=== PATIENT | male | born 1940 | race Caucasian/White ===

== ENCOUNTER 2022-11-19 11:21 | Outpatient (CLI) | payer MEDICARE, SELFPAY ==
--- NOTE | ~2022-11-19 | PE_ITS ---
EXAMINATION: PET_PETPSMAST_PT DATE: 11/19/2022 15:39 INDICATION: Prostate cancer TECHNIQUE: 10.523 mCi of pipflufolastat F-18 (18-F-DCFPyL) was administered i.v. Low dose computed t omography (CT) images were acquired from the base of the brain to the base of the brain to the proxim al thighs for attenuation correction and anatomic localization. Positron emission tomography (PET) im ages were acquired in the same distribution beginning 104 minutes after injection. Images including f used PET/CT images were reconstructed in axial, coronal, and sagittal planes. Automated exposure cont rol technique was employed. The dose-length product was 811.37mGy-cm. COMPARISON: CT lumbar spine dated 10/20/2019 FINDINGS: Head/neck: Typical pattern of symmetric physiologic increased activity in the lacrimal, parotid and submandibula r glands as well as along the mucosa of the oropharynx and nasopharynx and at the vocal cords. No pat hologically enlarged cervical lymphadenopathy or suspicious foci of increased uptake in the visualize d head or neck. Chest: Small focus of increased uptake at the T4 vertebral body with maximal SUV of 42 without discernible c orrelate on the CT images. Additional small focus of increased uptake with maximal severe 4.1 without definitive radiologic correlate at the right posterior aspect of the T9 vertebral body. Mild emphyse ma. Elevation the right hemidiaphragm with mild atelectasis at the right lung base. No suspicious pul monary nodules, pleural effusion, pathologically enlarged thoracic lymphadenopathy or other suspiciou s foci of abnormal PSMA neck activity. Heart size is normal. No pericardial effusion. Abdomen/pelvis/proximal thighs: Physiologic renal accumulation and excretion of activity in the kidneys, bladder and along portions o f ureters. There is increased uptake in the region of the prostate which appears small suggesting thi s is primarily if not exclusively due to urine activity at the site of a prior prostatectomy. No inte rval change in a 2 cm exophytic cyst at the posterior right kidney. Cholecystectomy clips the gallbla dder fossa. Normal degree and slightly heterogenous pattern of increased uptake throughout the liver and spleen without radiologic correlate or dominant PSMA avid lesion. Moderate fatty atrophy of the p ancreas. The bilateral adrenal glands are normal. Moderate uptake scattered throughout the bowels wit h typical duodenal predominance and without radiologic correlate, also likely physiologic. There are numerous prominently PSMA avid but still relatively small retroperitoneal lymph nodes beginning infer iorly in the left obturator region extending cephalad along the left iliac chain node surrounding the infrarenal aorta and inferior vena cava. None of the lymph nodes appear to measure greater than 6-8 mm in maximal short axis diameters however the maximum SUVs ranging from the 20s to 40s. There are al so a couple very small FDG avid bone lesions in the pelvis, one at the right side of S2 with maximal SUV of 14 and one at the left iliac crest with maximal SUV of 8.2 x 3 subtle associated sclerosis. IMPRESSION: 1. Numerous markedly PSMA avid normal-sized likely metastatic retroperitoneal lymph nodes beginning c audally at the left obturator region and extending the cephalad up the left iliac chain to the infrar enal periaortic and pericaval regions. 2. A few scattered very small PSMA avid bone lesions in the spine and pelvis also consistent with met astatic disease. Reviewed, dictated and finalized at location A. ATOR IMPRESSION: 1. Numerous markedly PSMA avid normal-sized likely metastatic retroperitoneal l ymph nodes beginning caudally at the left obturator region and extending the ce phalad up the left iliac chain to the infrarenal
== END 2022-11-19 11:22 | disposition home or self-care (01) ==
PROVIDERS: PCP Family Medicine; Visit Provider Urology
DX: C61 Malignant neoplasm of prostate (principal); M89.9 Disorder of bone, unspecified; R94.8 Abnormal results of function studies of other organs and systems
CPT/HCPCS: 78815; A9595

== ENCOUNTER 2024-07-26 10:26 | Outpatient (CLI) | payer MEDICARE, SELFPAY ==
--- NOTE | ~2024-07-26 | US_ITS ---
EXAMINATION: US arterial ankle brachial ind DATE: 07/26/2024 11:21 INDICATION: Peripheral vascular disease with claudication TECHNIQUE: Segmental pressures and plethysmographic and Doppler waveforms of the brachial and lower e xtremity arteries were obtained. COMPARISON: None. FINDINGS: Right and left brachial artery pressures of 134 mm Hg and 138 mm Hg, respectively, are concordant (no rmal difference <= 30 mmHg). The right ankle-brachial index (JOSE) is 1.07 (normal >= 0.9-1.0). The right great toe-brachial index (TBI) is 0.49 (normal >= 0.65). Arterial Doppler waveforms are biphasic with brisk systolic upstrokes at both right posterior tibial and dorsalis pedis arteries. The left JOSE is 1.12. The left TBI is 0.51. Arterial Doppler waveforms are biphasic with brisk systol ic upstrokes at both left posterior tibial and dorsalis pedis arteries. IMPRESSION: 1. Mild arterial occlusive disease to bilateral lower limbs with normal bilateral ABIs but mildly dec reased bilateral TBIs. Reviewed, dictated and finalized at location A. IMPRESSION: 1. Mild arterial occlusive disease to bilateral lower limbs with normal bilater al ABIs but mildly decreased bilateral TBIs.
== END 2024-07-26 10:27 | disposition home or self-care (01) ==
PROVIDERS: PCP Family Medicine; Visit Provider Physician Assistant Medical
DX: I77.1 Stricture of artery (principal); E11.9 Type 2 diabetes mellitus without complications; Z79.4 Long term (current) use of insulin
CPT/HCPCS: 93922

== ENCOUNTER 2025-01-15 11:28 | Emergency (ER) | payer MEDICARE, SELFPAY ==
--- NOTE | ~2025-01-15 | XR_ITS ---
EXAMINATION: XR chest 2V Exam Date/Time: 01/15/2025 14:20 CDT HISTORY: weakness Comparison: 02/28/2012. RESULT: Lines, tubes, and devices: Cholecystectomy clips. Lungs and pleura: Persistent right hemidiaphragm elevation, low lung volumes with crowding, particul marcella in the lateral view, lungs otherwise clear. Cardiomediastinal silhouette: Stable. Other: No acute osseous or upper abdominal finding. IMPRESSION: No acute cardiopulmonary process. Chronic right hemidiaphragm elevation, consider outpatient fluorosc opic sniff test. Reviewed, dictated and finalized at location K. IMPRESSION: No acute cardiopulmonary process. Chronic right hemidiaphragm elevation, consid er outpatient fluoroscopic sniff test.
--- NOTE | ~2025-01-15 | CT_ITS ---
EXAMINATION: CT brain wo con DATE: 01/15/2025 14:24 INDICATION: weakness . TECHNIQUE: Computed tomography (CT) of the head was performed without intravenous contrast. The mA wa s adjusted according to patient size. Iterative reconstruction technique was employed. The dose-lengt h product was 605.33 mGy-cm. COMPARISON: None. FINDINGS: No acute intracranial hemorrhage or extra-axial fluid collection. No hydrocephalus, mass, or herniation. No acute ischemic infarct. Unremarkable dural venous sinus attenuation. No acute osseous abnormality. The aerated spaces are clear. Mild atrophy and chronic white matter change. Atherosclerotic intracranial calcifications. IMPRESSION: No acute intracranial process. Reviewed, dictated and finalized at location K.
--- OUTSIDE RECORDS SUMMARY | 2025-01-15 11:33 | XMS_ITS | Patient Health Summary ---
Author Organization [facility] Address [address] [place] [address] Care Team Providers Care Settlement Processor Name Role Phone Unavailable Primary Care Provider Unavailabl e Note from [facility],non-owned Affiliates and Associated Physician Practices is amultiple site organization consisting of ambulatory clinics and hospital sitesin [place], [place], [place] and [place]. This disclosure is being madepursuant to the Care Everywhere program and may not contain all information available regarding this patient. Last updated 18.[facility] Allergies No known active allergies Medications * Be aware that medications may not be up to date on this document. Alwaysverify current medications with the patient. * amitriptyline (ELAVIL) 25 MG tablet(Started 11/09/2015) TAKE 3 TABLETS BY MOUTH EVERY NIGHT AT BEDTIME 4 refills left Social History Tobacco Use Types Packs/Day Years Used Date Smoking Tobacco: Never Assessed Sex and Gender Information Value Date Recorded Sex Assigned at Not on file Gender Identity Not on file Sexual Orientation Not on file
--- OUTSIDE RECORDS SUMMARY | 2025-01-15 11:33 | XMS_ITS | Clinical Summary ---
Author Organization [facility] Address [address] [place] [id number] Care Team Providers Care Buffing Turner And Counter Name Role Phone Unavailable Primary Care Provider Unavailabl e Social History Tobacco Use Types Packs/Day Years Used Date Smoking Tobacco: Never Assessed Sex and Gender Information Value Date Recorded Sex Assigned at Not on file Legal Sex Male 6:36 PM CDT Gender Identity Not on file Sexual Orientation Not on file Plan of Treatment Health Maintenance Due Date Last Done Comments DTaP, Tdap and Td Vaccines ( 1 - Tdap) 1958 Zoster Vaccines (1 of 2) 1989 Pneumococcal Vaccine: 65+ Ye ars (1 of 1 - PCV) 2004 RSV Immunization or 60+ Years (1 - 1-dose 75+ series) 2014 COVID-19 Vaccine ( - 2023-2 5 season) 2024 Influenza Adult (#1) 2024 Meningococcal B Vaccine Aged Out No l onger eligible based on patient's age to complete this topic Meningococcal Vaccine Aged Out No dalton rasheeda eligible based on patient's age to complete this topic RSV Immunizations Under 20 Months Aged Out No longer eligible based on patient's age to complete this topic
--- OUTSIDE RECORDS SUMMARY | 2025-01-15 11:33 | XMS_ITS | Referral Summary ---
Author Organization [facility] Address [address] [place] [address] Care Team Providers Care Continuous Linter Drier Operator Name Role Phone Unavailable Primary Care Provider Unavailabl e Source Comments [facility] [employer],non-owned Affiliates and Associated Physician Practices is amultiple site organization consisting of ambulatory clinics and hospital sitesin [place], [place], [place] and [place]. This disclosure is being madepursuant to the Care Everywhere program and may not contain all information available regarding this patient. Last updated 18.[facility] [employer] Allergies No known active allergies Medications * Be aware that medications may not be up to date on this document. Alwaysverify current medications with the patient. Medication Sig Dispensed Refills Start Date End Date Status amitriptyline (ELAVIL) 25 MG tablet TAKE 3 TABLETS BY MOUTH EVERY NIGHT AT BEDTIME 270 Tab 4 11/09/2015 Active Social History Tobacco Use Types Packs/Day Years Used Date Smoking Tobacco: Never Assessed Sex and Gender Information Value Date Recorded Sex Assigned at Not on file Gender Identity Not on file Sexual Orientation Not on file Plan of Treatment Not on file
--- OUTSIDE RECORDS SUMMARY | 2025-01-15 11:33 | XMS_ITS | Clinical Summary ---
Author Organization [facility] [employer] Address [address] [place] [address] Care Team Providers Care Employment Agency Manager Name Role Phone Unavailable Primary Care Provider Unavailabl e Source Comments [facility] [employer],non-owned Affiliates and Associated Physician Practices is amultiple site organization consisting of ambulatory clinics and hospital sitesin [place], [place], [place] and [place]. This disclosure is being madepursuant to the Care Everywhere program and may not contain all information available regarding this patient. Last updated 18.[facility] [employer] Allergies No known active allergies Medications * [...] Health Maintenance Due Date Last Done Comments DTAP/TDAP/TD VACCINES (1 - Tdap) 1959 PNEUMOCOCCAL VACCINE 50+ (1 of 1 - PCV) 1989 ZOSTER VACCINE (1 of 2) 1989 Respiratory Syncytial Virus (RSV) Vaccine Pt: or over 60 yrs (1 - 1-dose 75+ series) 2014 COVID-19 VACCINE ( - 2023-2 5 season) 2024 INFLUENZA VACCINE (#1) 2024 DEPRESSION SCREENING 11/03/2024 HEPATITIS B VACCINE Aged Out No longe r eligible based on patient's age to complete this topic HIB VACCINE Aged Out No longer eligi ble based on patient's age to complete this topic HPV VACCINE Aged Out No longer eligi ble based on patient's age to complete this topic MENINGOCOCCAL (Group B) VACC INE SHARED DECISION-MAKING Aged Out No longer eligibl e based on patient's age to complete this topic MENINGOCOCCAL GROUPS A/C/Y/W VACCINE Aged Out No longer eligible b ased on patient's age to complete this topic
[2025-01-15 11:38] VITALS: BP 129/67; PULSE 96; RESP 16; TEMP 36.3; O2SAT 100
--- OUTSIDE RECORDS SUMMARY | 2025-01-15 13:40 | XMS_ITS | Patient Health Summary ---
Author Organization [facility] Address [address] [place] [address] Care Team Providers Care Dairy Equipment Mechanic Name Role Phone Unavailable Primary Care Provider Unavailabl e Note from [facility],non-owned Affiliates and Associated Physician Practices is amultiple site organization consisting of ambulatory clinics and hospital sitesin [place], [place], [place] and [place]. This disclosure is being madepursuant to the Care Everywhere program and may not contain all information available regarding this patient. Last updated 18.[facility] [employer] Allergies No known active allergies Medications * [...]
--- OUTSIDE RECORDS SUMMARY | 2025-01-15 13:40 | XMS_ITS | Referral Summary ---
Author Organization [facility] Address [address] [place] [address] Care Team Providers Care Table Games Dual Rate Supervisor Name Role Phone Unavailable Primary Care Provider Unavailabl e Source Comments [facility] [employer],non-owned Affiliates and Associated Physician Practices is amultiple site organization consisting of ambulatory clinics and hospital sitesin [place], [place], [place] and [place]. This disclosure is being madepursuant to the Care Everywhere program and may not contain all information available regarding this patient. Last updated 18.[facility] [employer] Allergies No known active allergies Medications * [...]
--- OUTSIDE RECORDS SUMMARY | 2025-01-15 13:40 | XMS_ITS | Clinical Summary ---
Author Organization [facility] Address [address] [place] [address] Care Team Providers Care Tankerman Name Role Phone Unavailable Primary Care Provider [...]
--- OUTSIDE RECORDS SUMMARY | 2025-01-15 13:40 | XMS_ITS | Clinical Summary ---
Author Organization [facility] Address [address] [place] [address] Care Team Providers Care Relief Pharmacist Name Role Phone Unavailable Primary Care Provider Unavailabl e Source Comments [facility] [employer],non-owned Affiliates and Associated Physician Practices is amultiple site organization consisting of ambulatory clinics and hospital sitesin [place], [place], [place] and [place]. This disclosure is being madepursuant to the Care Everywhere program and may not contain all information available regarding this patient. Last updated 18.[facility] Allergies No known active allergies Medications * [...]
--- NOTE | 2025-01-15 13:41 | ECG_ITS ---
Test Date: 2025-01-15 13:51:17 Measurements Intervals [place] Rate: 79 P: 36 AR: 127 QRS: 46 QRSD: 79 T: 47 QT: 406 QTc: 467 Interpretive Statements SINUS RHYTHM WITH SINUS ARRHYTHMIA Electronically Signed On 01-16-2025 13:58:32 CDT by Darnell Marquez D.O
--- NOTE | 2025-01-15 13:42 | ED_ITS ---
HPI - General Adult General Chief complaint: Unspecified Stated complaint: hot flushes, weakness, pt is on cancer med Time Seen by Provider: 01/15/25 13:27 History of Present Illness HPI narrative: 84-year-old male with a past medical history including prostate cancer, diabetes. He presents today with vague complaints that he states has been chronic for multiple weeks. Patient states he has been having hot and cold flashes, multiple medications have been changed by his primary doctor including Elavil and was taken off insulin and placed on oral medications for diabetes. He thinks he is having side effects from these medication changes but has not called his doctor for instructions are advised. His is present at bedside states that he is not call his doctor infused cause doctor but when he called today their office was closed and he came to the emergency department. Patient denies any chest pain, shortness a breath, nausea, vomiting, headache, vision changes, abdominal pain or back pain. He was otherwise in his normal state of health. Symptoms going on for several months according to the patient. Related Data Home Medications ?Medication ?Instructions ?Recorded ?Confirmed ?Last Taken ?Type enzalutamide 80 mg tablet (Xtandi) 160 mg PO DAILY 08/23/24 12/09/24 Unknown History vibegron 75 mg tablet (Gemtesa) 75 mg PO DAILY 08/23/24 12/09/24 Unknown History trospium 60 mg capsule,extended 60 mg PO QAM 12/09/24 12/09/24 Unknown History release 24 hr Allergies Allergy/AdvReac Type Severity Reaction Status Date / Time metoclopramide Allergy Severe Unknown Verified 01/15/25 13:49 Review of Systems 2 Review of Systems: As reviewed above in HPI [facility] Past Medical History Medical History (Updated 01/15/25 @ 19:02 by Julio Glover MD) Diabetic neuropathy Dermagraphy Diabetes mellitus Prostate cancer Surgical History Surgical History H/O prostatectomy 2010 or 2011 History of cholecystectomy History of surgical removal of meniscus of knee Family History Family History Father Diabetes mellitus Social History Social History Smoking packs per day: 1.5 Smoking cigarettes per day: 30.0 Years smoked: 30 Smoking pack-years: 45.00 Smoking status: Former smoker Tobacco type: cigarettes Second hand tobacco smoke exposure: No Smoking end date: 11/03/70 Alcohol intake: never Substance use: never Substance use type: does not use Lack of Transportation: No Lack of Food: Sometimes True Current Housing: I Have Housing Concerned About Future Housing: No Difficulty Paying Gas/Electric Bills: Decline to Answer Difficulty Paying for Meds: Decline to Answer Currently Unemployed: Decline to Answer Education: Decline to Answer Difficulty w/ Childcare or Family Care: No Living arrangements: with family Occupation/Education: retired Gender identity (if verbalized by the patient): Male Sexual Orientation (if Verbalized by the Patient): Straight or Heterosexual Spiritual care concerns: No Agree to blood products: Yes Exam 2 Narrative: GENERAL: [Well-appearing, well-nourished, and in no acute distress.] HEAD: [Normocephalic, atraumatic.] EYES: [PERRLA and EOMI.] ENT: Nares clear, no rhinorrhea or epistaxis. Mucous membranes moist. NECK: Supple. CHEST: [Clear to auscultation. No respiratory distress.] HEART: [Regular rate and rhythm]. No murmur heard. [Normal peripheral pulses.] ABDOMEN: [Soft, nondistended], [nontender], [No rigidity or guarding] EXTREMITIES: Normal range of motion. [No edema.] SKIN: Warm, dry, no rash. NEURO: [No focal deficits]. Alert and oriented [x3.] PSYCH: [Normal mood and affect.] Course Vital Signs Vital signs: Vital Signs Temperature 36.3 C L 01/15/25 11:38 Pulse Rate 96 01/15/25 11:38 Respiratory Rate 16 01/15/25 11:38 Blood Pressure 129/67 01/15/25 11:38 Pulse Oximetry 100 01/15/25 11:38 Oxygen Delivery Room Air 01/15/25 11:38 Temperature 36.3 C L 01/15/25 11:38 Pulse Rate 86 01/15/25 18:50 Respiratory Rate 15 01/15/25 18:50 Blood Pressure 130/80 01/15/25 18:50 Pulse Oximetry 97 01/15/25 18:50 Oxygen Delivery Room Air 01/15/25 11:38 Medical Decision Making MDM Narrative Medical decision making narrative: 84-year-old male with history of prostate cancer, diabetes. He presents to the emergency room with multiple vague complaints including generalized weakness, hot and cold flashes. He states his symptoms are going on for several weeks to months and attributes them to medication changes including his Elavil and diabetes of drug management. He states that he has not call his doctors, certified composites technician or any of his specialist to discuss the medication changes. He did not set up with PCP appointment. His states that she was trying to get him to call his doctor but he refused. Patient self is not any acute distress, has normal vital signs without any tachycardia, fever or hypoxia. Normal blood pressure. Unremarkable clinical examination. Patient has multiple vague complaints and does not appear to be having a medical emergency but given his age and risk factors workup was ordered and screening laboratory studies CBC, CMP, EKG, chest x-ray, urinalysis and a CT of the head was ordered. Informed the patient that he has an unremarkable workup without any acute focal findings that he will have to call his primary doctor to set up a follow-up appointment to discuss his medication changes as we will not be adjusting his medications acutely. Workup shows no leukocytosis or significant anemia. Normal platelet count. Electrolytes within normal limits, normal creatinine, normal glucose, normal LFTs. Normal TSH. Urinalysis without signs of infection. Head CT without any acute intracranial findings. Chest x-ray without any acute cardiopulmonary process. Patient's workup was unremarkable he has normal reassuring vital signs and stable upon reassessment. No emergent concerns. He can be safely discharged with regular PCP follow-up for medication titration. Patient and family made aware of the plan and discharged at this time. Medical Records Medical records reviewed: Yes I reviewed the external patient's medical records. Vital Signs Vital Signs: Vital Signs Temperature 36.3 C L 01/15/25 11:38 Pulse Rate 96 01/15/25 11:38 Respiratory Rate 16 01/15/25 11:38 Blood Pressure 129/67 01/15/25 11:38 Pulse Oximetry 100 01/15/25 11:38 Oxygen Delivery Room Air 01/15/25 11:38 Temperature 36.3 C L 01/15/25 11:38 Pulse Rate 86 01/15/25 18:50 Respiratory Rate 15 01/15/25 18:50 Blood Pressure 130/80 01/15/25 18:50 Pulse Oximetry 97 01/15/25 18:50 Oxygen Delivery Room Air 01/15/25 11:38 Lab Data Lab results reviewed: Yes I reviewed the patient's lab results. 01/15/25 13:59 01/15/25 13:59 Labs: Lab Results 01/15/25 01/15/25 Range/Units 13:59 15:39 WBC 7.8 (4.5-10.0) K/mm3 RBC 4.11 L (4.6-6.20) M/mm3 Hgb 13.3 L (14.0-18.0) g/dL Hct 38.6 L (42.0-52.0) % MCV 93.9 (80-100) fl MCH 32.4 (26-34) pg MCHC 34.5 (32-36) g/dl RDW 12.6 (11.5-14.5) % Plt Count 270 (150-375) k/mm3 MPV 8.8 (7.4-10.4) fl Immature Gran % (Auto) 0.4 (0-0.5) % Neut % (Auto) 53.2 (45.5-73.1) % Lymph % (Auto) 30.7 (18.3-44.2) % [place] % (Auto) 12.3 H (2.6-8.5) % Eos % (Auto) 2.9 (0-4.4) % Baso % (Auto) 0.5 (0.2-1.2) % Lymph # (Auto) 2.40 (0.9-3.2) K/mm3 [place] # (Auto) 1.0 H (0.1-0.6) K/mm3 Eos # (Auto) 0.2 (0-0.3) K/mm3 Baso # (Auto) 0.0 (0.0-0.1) K/mm3 Abs Immat Gran (auto) 0.03 (0.00-0.031) K/mm3 Absolute Neuts (auto) 4.2 (1.3-6.7) K/mm3 Absolute Nucleated RBC 0.000 (0.0-0.012) K/mm3 Nucleated RBC % 0.0 (0.0-0.2) % Sodium 139 (137-145) mmol/L Potassium 4.1 (3.4-5.0) mmol/L Chloride 105 (98-107) mmol/L Carbon Dioxide 27 (22-30) mmol/L Anion Gap 7 (4-12) mmol/L BUN 25 H (9-20) mg/dL Creatinine 0.94 (0.7-1.3) mg/dL Estim Creat Clear Calc 52 ml/min Estimated GFR > 60 (59 - ) Glucose 152 H (65-110) mg/dL Calcium 9.2 (8.4-10.2) mg/dL Total Bilirubin 0.8 (0.2-1.3) mg/dL AST 24 (17-59) U/L ALT 17 (6-50) U/L Alkaline Phosphatase 102 (38-126) U/L Total Protein 7.0 (6.3-8.2) g/dL Albumin 3.8 (3.5-5.1) g/dL TSH (Reflex) 1.170 (0.465-4.68) uIU/mL Urine Color Yellow (Yellow) Urine Appearance Clear (Clear) Urine pH 6.5 (5.0-9.0) Ur Specific [place] 1.023 (1.001-1.035) Urine Protein Negative (Negative) mg/dL Urine Glucose (UA) Negative (Negative) mg/dL Urine Ketones Trace H (Negative) mg/dL Ur Blood (Man) Negative (Negative) Urine Nitrate Negative (Negative) Urine Bilirubin Negative (Negative) Urine Urobilinogen 0.2 (<2.0) mg/dL Leukocyte Esterase Rfl Negative (Negative) ARGELIA/UL Imaging Data Attestation: I personally reviewed and interpreted this imaging study as follows: My impression: Impressions Head CT 01/15/25 14:41 IMPRESSION: No acute intracranial process. Chest X-Ray 01/15/25 15:00 IMPRESSION: No acute cardiopulmonary process. Chronic right hemidiaphragm elevation, consider outpatient fluoroscopic sniff test. Discharge Plan Discharge Clinical Impression: Weakness Patient Disposition: Home, Self-Care Condition: Stable Instructions: Antibiotic Form, Weakness (ED) Additional Instructions: Your workup appears very unremarkable. Normal laboratory studies, no signs of infection, no urinary infection. No CT findings, normal chest x-ray. Normal vital signs. Call your regular doctor for outpatient follow-up. No urgent or emergent concerns identified today Patient Language: Citizen Of [place] Prescriptions: No Action glucagon 3 mg/actuation spray,non-aerosol 3 mg intranasal ONCE Qty: 2 4RF Rx Instructions: as a single dose; may repeat once in 15 minutes if no response glucose [Dex4 Glucose] 4 gram tablet,chewable 16 g PO Q15M PRN (Reason: hypoglycemia) Qty: 60 1RF Rx Instructions: until symptoms of low blood sugar are controlled Gemtesa 75 mg tablet 75 mg PO DAILY Xtandi 80 mg tablet 160 mg PO DAILY trospium 60 mg capsule,extended release 24hr 60 mg PO QAM Rx Instructions: must be taken on empty stomach at least 1 hour before a meal/food with water only Tradjenta 5 mg tablet 5 mg PO QAM Qty: 90 3RF (DME) lancets 30 gauge misc See Rx Instructions .ROUTE .MEDSUPPLY Qty: 450 3RF Rx Instructions: As directed - test blood sugar 5x daily (DME) OneTouch Verio test strips Strip See Rx Instructions .ROUTE .MEDSUPPLY Qty: 450 3RF Rx Instructions: As directed - test blood sugar 5x daily (DME) blood-glucose meter [OneTouch Verio Meter] Misc See Rx Instructions .Route Qty: 1 0RF Rx Instructions: As directed daily (DME) lancing device [lancing device with lancets] Misc See Rx Instructions .Route Qty: 1 10RF Rx Instructions: As directed bid amitriptyline 25 mg tablet 75 mg PO QPM Qty: 270 3RF famotidine 40 mg tablet 40 mg PO Q12H Qty: 180 3RF Follow-up/Referrals: Star Stuart MD [Primary Care Provider] - Time of Disposition: 19:02
[2025-01-15 13:49] VITALS: BP 141/78; PULSE 83; RESP 17; O2SAT 97
[2025-01-15] MEDS: LACTATED RINGERS 1,000 ML 999 ML IV CONT (13:58)
[2025-01-15 14:03] LABS: Basophils Percent Auto 0.5 % (0.2-1.2); Eosinophils Absolute Auto 0.2 K/mm3 (0-0.3); Eosinophils Percent Auto 2.9 % (0-4.4); Hematocrit 38.6 % (42.0-52.0); Hemoglobin 13.3 g/dL (14.0-18.0); Immature Granulocyte Absolute 0.03 K/mm3 (0.00-0.031); Immature Granulocyte Percent A 0.4 % (0-0.5); Lymphocytes Percent Auto 30.7 % (18.3-44.2); Mean Corpuscular HGB Conc 34.5 g/dl (32-36); Mean Corpuscular Hemoglobin 32.4 pg (26-34); Mean Corpuscular Volume 93.9 fl (80-100); Mean Platelet Volume 8.8 fl (7.4-10.4); Monocytes Percent Auto 12.3 % (2.6-8.5); Neutrophils Absolute Auto 4.2 K/mm3 (1.3-6.7); Neutrophils Percent Auto 53.2 % (45.5-73.1); Platelet Count Result 270 k/mm3 (150-375); Red Blood Count 4.11 M/mm3 (4.6-6.20); Red Cell Distribution Width 12.6 % (11.5-14.5); White Blood Count 7.8 K/mm3 (4.5-10.0)
--- NOTE | 2025-01-15 14:08 | PC.NURSE ---
Pt reports unable to give urine sample at this time. States he will use urinal and press call light when he collects sample.
[2025-01-15 14:21] LABS: Alanine Aminotransferase 17 U/L (6-50); Albumin Level 3.8 g/dL (3.5-5.1); Alkaline Phosphatase 102 U/L (38-126); Anion Gap 7 mmol/L (4-12); Aspartate Amino Transferase 24 U/L (17-59); Bilirubin,Total 0.8 mg/dL (0.2-1.3); Blood Urea Nitrogen 25 mg/dL (9-20); Calcium 9.2 mg/dL (8.4-10.2); Carbon Dioxide 27 mmol/L (22-30); Chloride 105 mmol/L (98-107); Estimated CRCL calculation 52 ml/min; Estimated Glomerular Filt Rate > 60; Glucose 152 mg/dL (65-110); Potassium 4.1 mmol/L (3.4-5.0); Sodium 139 mmol/L (137-145)
[2025-01-15 14:56] VITALS: BP 122/63; PULSE 81; RESP 19; O2SAT 97
[2025-01-15 15:45] LABS: Add Urine Microscopic? NO; Appearance Urine Clear (Clear); Bilirubin Urine Negative (Negative); Blood Urine Negative (Negative); Color Urine Yellow (Yellow); Glucose Urine UA Negative (Negative); Ketones Urine Trace mg/dL (Negative); Leukocyte Esterase Ur Negative LEU/UL (Negative); Nitrate Urine Negative (Negative); Protein Urine Negative (Negative); Specific Grav Ur 1.023 (1.001-1.035); Urobilinogen Urine 0.2 mg/dL (<2.0); pH Urine 6.5 (5.0-9.0)
[2025-01-15 15:53] VITALS: BP 117/69; PULSE 79; RESP 15; O2SAT 97
[2025-01-15 17:36] VITALS: BP 127/69; PULSE 88; RESP 16; O2SAT 97
[2025-01-15 18:50] VITALS: BP 130/80; PULSE 86; RESP 15; O2SAT 97
== END 2025-01-15 19:11 | disposition home or self-care (01) ==
PROVIDERS: Emergency Provider Student in an Organized Health Care Education/Training Program; PCP Hospitalist
DX: R53.1 Weakness (principal); E11.40 Type 2 diabetes mellitus with diabetic neuropathy, unspecified; Z85.46 Personal history of malignant neoplasm of prostate; Z87.891 Personal history of nicotine dependence; Z90.79 Acquired absence of other genital organ(s); Z90.49 Acquired absence of other specified parts of digestive tract; Z79.899 Other long term (current) drug therapy; Z79.84 Long term (current) use of oral hypoglycemic drugs
CPT/HCPCS: 36415; 70450; 71046; 80053; 81003; 84443; 85025; 93005; 96360; 99284; J7120